=== PATIENT | female | born 1990 | race Caucasian/White ===

== ENCOUNTER 2017-04-15 14:27 | Emergency (ER) | payer SELFPAY ==
[~2017-04-15] VITALS: Ht 162.6 cm; Wt 62.6 kg
[2017-04-15 15:10] LABS: BASO # 0.1 x10^3/uL (0.0-0.2); BASO % 1 % (0-3); EOS # 0.1 x10^3/uL (0.0-0.7); EOS % 1 % (0-3); HEMATOCRIT 36.6 % (36.0-47.0); HEMOGLOBIN 12.4 g/dL (12.0-15.5); LYMPH # 1.8 x10^3/uL (1.0-4.8); LYMPH % 32 % (24-48); MEAN CORPUSCULAR HEMOGLOBIN 33 pg (25-35); MEAN CORPUSCULAR HGB CONC 34 g/dL (31-37); MEAN CORPUSCULAR VOLUME 96 fL (79-100); MONO # 0.7 x10^3/uL (0.0-1.1); MONO % 13 % (0-9); NEUT % 54 % (31-73); PLATELET COUNT 376 x10^3/uL (140-400); RED BLOOD COUNT 3.82 x10^6/uL (3.50-5.40); RED CELL DISTRIBUTION WIDTH 13.8 % (11.5-14.5); WHITE BLOOD COUNT 5.6 x10^3/uL (4.0-11.0)
[2017-04-15 15:16] LABS: AMPHETAMINE/METHAMPHETAMINE NEG (NEG); BARBITURATES NEG (NEG); BENZODIAZEPINES NEG (NEG); CANNABINOIDS NEG (NEG); COCAINE NEG (NEG); METHADONE NEG (NEG); OPIATES NEG (NEG); PHENCYCLIDINE NEG (NEG)
--- NOTE | 2017-04-15 15:19 | PHYS DOC ---
General Chief Complaint: SYNCOPE Stated Complaint: SYNCOPE Time Seen by MD: 14:51 Source: patient Exam Limitations: no limitations Problems: History of Present Illness Initial Comments Patient is a 26-year-old type I diabetic brought to the ED by a friend with report of syncope fall and head injury. Patient states that she typically takes NovoLog and Lantus however she had an insurance mishap as he could not afford those medications. She states that her doctor changed her to 70/30 insulin 35 units twice daily until that time she could afford her normal medications. Today is the first day of this new medication for the patient, she awoke around noon and took 35 units. She ate some sausage and eggs and went to a friend's house. While sitting at a table trying to put in a belly piercing she had a witnessed syncopal episode whereby she fell forward hitting her head on the table then falling to her left to the floor. Her friend's mother is an RN and immediately began trying to get some glucose and the patient. The patient and the friend witnessed states that as soon as the patient began drinking apple juice her head cleared her balance was restored and she became herself again. Patient states that her symptoms the way she felt were identical to prior incidences of syncope with hypoglycemia. She denies any chest pain or trouble breathing no nausea or preceding headache no focal neurologic deficits. Currently the patient complains of a global headache mild to moderate throbbing in nature. She is aware that she hit her head when she fell however she has no tender sore or swollen areas that her face or scalp. Her symptoms are worse with activity and bright lights relieved by rest. She's had no photophobia and nausea vomiting dizziness or focal neurologic deficits. She has no neck pain and denies new or progressive symptoms. Occurred: just prior to arrival Severity: severe Injuries/Pain Location: head Context: other Loss of Consciousness: brief (seconds) Modifying Factors: improves with other Associated Symptoms: other Allergies: Coded Allergies: No Known Drug Allergies (Unverified , 04/15/17) Past Medical History Medical History: diabetes Surgical History: noncontributory Social History Smoker: non-smoker Alcohol: none Drugs: none Review of Systems Constitutional: denies chills, denies diaphoresis, denies fever, denies malaise Eyes: denies blindness, denies blurred vision, denies drainage, photophobia Ears, Nose, Mouth, Throat: denies ear pain, denies ear discharge, denies nose discharge, denies epistaxis, denies mouth pain, denies loose teeth, denies throat pain Respiratory: denies cough, denies shortness of breath, denies wheezing Cardiovascular: denies chest pain, denies palpitations, syncope Gastrointestinal: denies abdominal pain, denies diarrhea, denies nausea, denies vomiting Genitourinary: denies dysuria, denies frequency, denies hematuria Musculoskeletal: denies back pain, denies joint swelling, denies neck pain Psychiatric/Neurological: see HPI, headache, denies numbness, denies paresthesia Physical Exam General Appearance: WD/WN, no apparent distress Head: no evidence of injury (normocephalic atraumatic negative Portillo sign negative raccoon eyes there is no face or scalp tenderness swelling or ecchymosis.) Eyes: bilateral eye normal inspection, bilateral eye PERRL, bilateral eye EOMI Ears, Nose, Mouth, Throat: hearing grossly normal, no evidence of ENT injury, no dental injury (no ear or nose discharge no fluid behind TMs bilaterally) Neck: non-tender, full range of motion, normal alignment Cardiovascular/Respiratory: normal peripheral pulses, normal breath sounds, no respiratory distress Gastrointestinal: normal bowel sounds, non tender, soft Back: no CVA tenderness, no vertebral tenderness Extremities: normal range of motion, non-tender 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 Interpreted by Dr. Ramos. POC glucose greater than 300 after apple juice. Patient states that her disease is fairly brittle, she says a few bites of a candy bar can take her glucose up to the 500s. I had a long conversation about syncope hypoglycemia diabetes and insulin. Patient is alert and oriented 3 she exhibits UCAR capacity. She requests that no further evaluation take place. She is certain that she suffered a hypoglycemic syncopal episode due to over administration of a new form of insulin. I discussed concussion precautions as well as decreased dosing of her current 7030 insulin. I discussed close PCP follow-up tomorrow the patient agrees to stay with a friend sue who will check in on her frequently. Patient understands she may return at any time for further evaluation and workup. Patient left the department in good condition. Departure Time of Disposition: 15:11 Disposition: 01 HOME, SELF-CARE Diagnosis: syncope, iatrogenic hypoglycemia, concussion Condition: GOOD Patient Instructions: Concussion and Brain Injury, [id number], Hypoglycemia ( Low Blood Sugar) Additional Instructions: As discussed, you have refused further workup in the department as you are certain that you experienced medication-induced hypoglycemia. You understand you may return at any time. Recommend decreasing 70/30 insulin dosing to 20 units at bedtime tonight and in the morning. Aggressive hydration with Gatorade or water. Maintain consistent ADA diet. Off work until cleared by your doctor. No strenuous activity, exercise, or work. Remain in a cool temperature dimly lit environment for optimal symptom control. [id number] Tylenol as needed. Ice to painful areas 4-6 times daily as needed. No driving or operating machinery until cleared by your doctor. Stay with family or a friend who can monitor your wakefulness and glucose if needed. Follow-up with your doctor tomorrow for recheck. Return to the ED with new or changing symptoms. SUSAN RAMOS DO Apr 15, 2017 15:19
[2017-04-15 15:20] LABS: ALBUMIN 3.5 g/dL (3.4-5.0); ALBUMIN/GLOBULIN RATIO 0.9 (1.0-1.7); CALCIUM 8.5 mg/dL (8.5-10.1); CREATININE 0.7 mg/dL (0.6-1.0); GFR 102.8; POTASSIUM 3.8 mmol/L (3.5-5.1); TOTAL BILIRUBIN 0.2 mg/dL (0.2-1.0); TOTAL PROTEIN 7.5 g/dL (6.4-8.2)
[2017-04-15 15:23] LABS: BILIRUBIN,URINE NEG (NEG); CLARITY,URINE CLEAR; COLOR,URINE YELLOW; GLUCOSE,URINE >=1000 mg/dL (NEG); NITRITE,URINE NEG (NEG); UROBILINOGEN,URINE 0.2 mg/dL (0.2 mg/dL)
[2017-04-15 15:24] LABS: BACTERIA,URINE 0 /HPF (0-FEW); SQUAMOUS EPITHELIAL CELL,UR FEW /LPF
[2017-04-15 15:25] LABS: U PREG PATIENT NEGATIVE (NEG)
[2017-04-15 15:30] VITALS: BP 117/68
--- NOTE | 2017-04-15 20:50 | EKG ---
[address] [address] Test Date: 2017-04-15 Test Time: 14:43:30 Pat Name: LOBO CLARK Department: Room: Gender: F [employer]: : [id number] Requested By: SUSAN ALMARAZ Order Number: [id number] Reading MD: Pedro Fernandez Measurements Intervals [place] Rate: 94 P: 34 OK: 130 QRS: 74 QRSD: 82 T: 26 QT: 362 QTc: 458 Interpretive Statements SINUS RHYTHM Electronically Signed On 04-16-2017 8:11:59 CDT by Pedro Fernandez
== END 2017-04-15 15:30 | disposition home or self-care (01) ==
LOC: ER 14:27
DX: R55 Syncope and collapse (principal); S06.0X0A Concussion without loss of consciousness, initial encounter; E16.0 Drug-induced hypoglycemia without coma; E10.649 Type 1 diabetes mellitus with hypoglycemia without coma; W18.09XA Striking against other object with subsequent fall, initial encounter; Y93.89 Activity, other specified; Y99.8 Other external cause status; Y92.89 Other specified places as the place of occurrence of the external cause
CPT/HCPCS: 36415; 80053; 80307; 81001; 81025; 82947; 85027; 93005; 99285-25; G0479